=== PATIENT | female | born 1990 | race American Indian/Alaskan Native ===

== ENCOUNTER 2018-07-05 07:32 | Outpatient (CLI) | payer MEDICAID ==
[2018-07-05 08:22] LABS: Bacteria,Urine 1+ /HPF (Negative); Bilirubin,Urine NEG (Negative); Blood,Urine NEG (Negative); Color,Urine Amber (Yellow); Mucus,Urine FEW /HPF; Protein,Urine <15 mg/dL mg/dL (Negative)
[2018-07-05 08:25] LABS: Hematocrit 33.6 % (30.3-42.9); Hemoglobin 10.8 gm/dl (10.1-14.3); Mean Corpuscular HGB Conc 32 % (30-34); Mean Corpuscular Volume 73 fl (79-97); Platelet Count 118 K/mm3 (140-440); Red Blood Count 4.62 M/mm3 (3.65-5.03); Red Cell Distribution Width 17.1 % (13.2-15.2)
[2018-07-05 08:30] LABS: Amphetamine Screen,Urine PRESUMPTIVE NEGATIVE; Benzodiazepines Screen,Urine PRESUMPTIVE NEGATIVE; Cannabinoid Screen,Urine PRESUMPTIVE NEGATIVE; Cocaine Screen,Urine PRESUMPTIVE NEGATIVE; Methadone Screen,Urine PRESUMPTIVE NEGATIVE; Opiate Screen,Urine PRESUMPTIVE NEGATIVE
[2018-07-05 08:50] VITALS: BP 115/61
[2018-07-05] MEDS ORDERED: LACTATED RINGERS 500 ML IV ONE (09:00)
--- NOTE | 2018-07-05 11:19 | Ultrasound Report ---
OB ULTRASOUND History well being. Technique: Transabdominal ultrasound with Doppler interrogation. Gestation: Single Position: Breech Amniotic Fluid: Normal LEBRON = 19.6 cm Placenta: Fundal, anterior Placental Grade: 1 Heart Rate: 133 BPM Cervical length: 6.1 cm (Normal > 3 cm) BPD: 7.7 cm = 31 w 0 d HC: 26.7 cm = 29 w 0 d AC: 24.7 cm = 28 w 6 d FL: 5.6 cm = 29 w 3 d HC/AC Ratio: 1.08 Cephalic Index: 91.8 Estimated Weight: 1359 grams Clinical age = 31 w 0 d EDC: 09/06/18 US Gest. Age = 29 w 4 d EDC: 09/16/18 IMPRESSION: Viable, single intrauterine as described.
== END 2018-07-05 11:10 | disposition home or self-care (01) ==
LOC: TRG 07:32
PROVIDERS: ATTEND Obstetrics & Gynecology
DX: O47.03 False labor before 37 completed weeks of gestation, third trimester (principal); Z3A.31 31 weeks gestation of pregnancy
CPT/HCPCS: 36415; 59025; 76805; 80307; 81001; 85027

== ENCOUNTER 2018-09-02 09:11 | Inpatient (IN) | payer MEDICAID ==
[2018-09-02] MEDS ORDERED: PEPCID IV ONE (09:49)
[2018-09-02] MEDS ORDERED: REGLAN IV ONE (09:49)
[2018-09-02] MEDS ORDERED: BICITRA PO ONE (09:49)
[2018-09-02] MEDS ORDERED: ANCEF/STERILE WATER 2 GM/20 ML 2 GM/20 ML SYRINGE IV NR (10:00)
[2018-09-02] MEDS: LACTATED RINGERS 1,000 ML IV SCH ×2 (10:00→11:32)
[2018-09-02 11:15] LABS: Basophils % (Auto) 0.2 % (0.0-1.8); Eosinophils % (Auto) 0.4 % (0.0-4.3); Hematocrit 34.1 % (30.3-42.9); Hemoglobin 11.2 gm/dl (10.1-14.3); Mean Corpuscular HGB Conc 33 % (30-34); Mean Corpuscular Volume 72 fl (79-97); Monocytes # (Auto) 0.5 K/mm3 (0.0-0.8); Monocytes % (Auto) 5.7 % (0.0-7.3); Platelet Count 112 K/mm3 (140-440); Red Blood Count 4.74 M/mm3 (3.65-5.03); Red Cell Distribution Width 16.7 % (13.2-15.2)
[2018-09-02] MEDS ORDERED: PHENERGAN PO PRN (12:10)
[2018-09-02] MEDS ORDERED: NARCAN 0.4 MG/1 ML IV PRN (12:10)
[2018-09-02] MEDS ORDERED: ZOFRAN IV PRN (12:10)
[2018-09-02] MEDS ORDERED: PHENERGAN PR PRN (12:10)
[2018-09-02] MEDS ORDERED: DILAUDID IV PRN (12:10)
[2018-09-02] MEDS ORDERED: BENADRYL IV PRN (12:10)
--- NOTE | 2018-09-02 12:10 | Anesthesia Consultation ---
Anesthesia Consult and Med Hx Date of service: 09/02/18 - Airway Anesthetic Teeth Evaluation: Good ROM Head & Neck: Adequate Mental/Hyoid Distance: Adequate Mallampati Class: Class III Intubation Access Assessment: Possibly Difficult - Pre-Operative Health Status ASA Pre-Surgery Classification: ASA3 Proposed Anesthetic Plan: Epidural, Spinal - Pulmonary Hx Asthma: No - Cardiovascular System Hx Hypertension: No - Central Nervous System Hx Seizures: No Hx Psychiatric Problems: No - Endocrine Hx Renal Disease: No Hx Hypothyroidism: No Hx Hyperthyroidism: No - Hematic Hx Anemia: No Hx Sickle Cell Disease: No - Other Systems Hx Alcohol Use: No Hx Obesity: Yes (BMI 42.2)
--- NOTE | 2018-09-02 12:10 | Anesthesia Day of Surgery ---
Anesthesia Day of Surgery - Day of Surgery Patient Examined: Yes Patient H&P Reviewed: Yes Patient is NPO: Yes
[2018-09-02] MEDS ORDERED: ANCEF/STERILE WATER 2 GM/20 ML IV ONE (12:58)
[2018-09-02] MEDS ORDERED: SODIUM CHLORIDE FLUSH SYRINGE 10 ML IV NR ×2 (13:00→15:00)
[2018-09-02] MEDS ORDERED: NACL 0.9% IR ONE (13:06)
[2018-09-02] MEDS ORDERED: WATER FOR IRRIG STERILE IR ONE (13:06)
[2018-09-02] MEDS ORDERED: NEO SYNEPHRINE/NS Syringe(OR USE) IV ONE ×2 (13:20)
[2018-09-02] MEDS: PITOCin/NS 20 UNIT/1000ML DRIP 20 UNITS/1,000 ML BAG IV SCH ×2 (13:26→15:25)
--- NOTE | 2018-09-02 14:31 | Operative Report ---
Operative Report Operative Report: Operative Report Operative Report: DATE OF PROCEDURE: 09/02/18 PREOP Diagnosis 1. 39 3/7 weeks gestation 2. Previous section Postop Diagnosis 1. 39 3/7 weeks gestation 2. Previous section 3. UTERINE DEHISCENCE Procedure: Repeat transverse section Findings 1. Viable female infant in the vertex position, weighing 5lb 15oz, 2699g APGARS 8 at 1 min, 9 at 5 min 2. Uterine myometrium adhered directly to fascia. 3. Uterine dehiscence - Uterine serosa - absent 4. Uterine fundal adhered to anterior abdominal wall 5. Lower uterine segment densely adhered to bladder. Surgeon 1. Dottie Martino MD Anesthesia: 1. Epidural I/O: EBL: 1000ml UOP: 150ml, clear urine IVF 1200ml LR Specimens removed: 1. Placenta - to pathology for evaluation Complications: none Disposition: Patient taken to recovery room in stable condition INDICATIONS: The patient is a 27yo at 39 3/7weeks that presented for scheduled repeat section. The patient was consented and the risks including but not limited to bleeding, infections, injury to surrounding organs, potential injury to mother/infant were discussed. All questions were answered and informed consent signed. She was offered and declined a tubal sterilization. PROCEDURE: The patient was taken to the OR in stable condition. Adequate anesthesia was achieved with epidural anesthesia. A sims catheter was placed. She wore SCDs for DVT prophylaxis. And received Ancef for infection prophylaxis. The patient was prepped and draped in the usual fashion and an additional time out was done. A Pfannestiel incision was made over the previous uterine scar. The fascia was incised and the incision extended laterally. At the midline, preperitoneal fat was immediately visible. The right rectus muscle was via a modified Maylard incision to aid in peritoneal visualization. The uterine myometrium was visible and adhered densely to the fascia. It began bleeding upon separation from the fascia and 2-0 Vircryl was used to control bleeding. A transverse inci pankaj was made and careful dissection into the myometrium was undertaken until membranes were noted. The membranes were brought to the hysterotomy and ruptured. The infant was delivered in vertex presentation. She was bulb suctioned and noted to spontaneously cry. The cord was clamped x2, cut and the handed off to awaiting peds staff. Cord blood was collected. The placenta was delivered with minimal membrane adhesions. Attention was then turned to the uterus where the uterine myometrium was reapproximated. The uterine serosa was not visible at the anterior or posterior planes of the hysterotomy. The uterus was repaired with 0-Vicryl in a running, locked stitch and an imbricating layer of the same suture was used. Tisseel Fibrine sealant was placed over the hysterotomy closure aiding in hemostasis. Interceed was placed between the uterine and fascial plane. The fascia was closed with 0 Vicryl. Subcutaneous layer reapproximated with 2-0 Vicryl. Skin closed with 4-0 Vicryl. The patient tolerated the procedure well. All counts were correct x 3. Urine was noted to be clear at close of case. I was present and scrubbed for the entire procedure. The urine was noted to be clear at end of case. The patient was taken to the recovery room in stable condition.
[2018-09-02] MEDS ORDERED: MYLICON PO PRN (14:32)
[2018-09-02] MEDS ORDERED: LANSINOH TP PRN (14:32)
[2018-09-02] MEDS ORDERED: MILK OF MAGNESIA PO PRN (14:32)
[2018-09-02] MEDS ORDERED: TYLENOL PO PRN (14:32)
[2018-09-02] MEDS ORDERED: TUCKS PAD TP PRN (14:32)
--- NOTE | 2018-09-02 14:39 | History and Physical Report ---
History of Present Illness Date of admission: 09/02/18 09:11 Chief complaint: schedule section History of present illness: 27yo at 39 3/7 wks MICHAEL 09/06/2018 presents for scheduled section. She reports good movement, no loss of fluid and no vaginal bleeding. She is a transfer of care at 34 weeks from [place], [place]. She began care their at 10 weeks in January 2018. She transferred care at 28 weeks. Her has been complicated by GBS bacteriauria and HSV2, genital herpes. Past History Past Surgical History: section [employer] History: herpes - Obstetrical History : 3 Number of Living Children: 2 Medications and Allergies Allergies Allergy/AdvReac Type Severity Reaction Status Date / Time azithromycin [From Zithromax] AdvReac Rash Verified 09/02/18 09:47 ciprofloxacin [From Cipro] AdvReac Rash Verified 09/02/18 09:48 peanut AdvReac Rash Verified 09/02/18 09:48 Home Medications Medication Instructions Recorded Confirmed Last Taken Type Acetaminophen [Tylenol] 325 mg PO PRN PRN 07/05/18 07/05/18 1 Day Ago History ~09/01/18 Vit,Calc76/Iron/Folic 1 tab PO DAILY 07/05/18 09/02/18 1 Day Ago History [Pnv 29-1 Tablet] ~09/01/18 Ferrous Sulfate [Feosol 325 MG tab] 325 mg PO BID 30 Days #60 tablet 09/02/18 Unknown Rx Ibuprofen 800 mg PO Q6H PRN 10 Days #30 09/02/18 Unknown Rx tablet MDD 3200mg Valtrex 1,000 mg PO QDAY 09/02/18 09/02/18 1 Day Ago History ~09/01/18 oxyCODONE /ACETAMINOPHEN [Percocet 1 tab PO Q4HR PRN 14 Days #30 tab 09/02/18 Unknown Rx 5/325] Active Meds: Active Medications Acetaminophen (Tylenol) 650 mg PO Q4H PRN PRN Reason: Fever >100.5/ENGEL Diphenhydramine HCl (Benadryl) 12.5 mg IV Q2H PRN PRN Reason: Itching Hydromorphone HCl (Dilaudid) 0.5 mg IV Q4H PRN PRN Reason: breakthrough pain > 7/10 Hydromorphone HCl (Dilaudid) 0.5 mg IV Q5M PRN PRN Reason: Breakthrough Pain Cefazolin Sodium (Ancef/Sterile Water 2 Gm/20 Ml) 2 gm in 20 mls @ 80 mls/hr IV PREOP NR; Protocol Stop: 09/02/18 23:59 Lactated Ringer's (Lactated Ringers) 1,000 mls @ 2,250 mls/hr IV PREOP KATELYN Stop: 09/03/18 10:27 Last Admin: 09/02/18 11:32 Dose: 2,250 mls/hr Documented by: Oxytocin/Sodium Chloride (Pitocin/Ns 20 Unit/1000ml Drip) 20 units in 1,000 mls @ 0 mls/hr IV TITR KATELYN Oxytocin/Sodium Chloride (Pitocin/Ns 20 Unit/1000ml Drip) 20 units in 1,000 mls @ 250 mls/hr IV DIRECT KATELYN Ibuprofen (Motrin) 800 mg PO Q6H PRN PRN Reason: Pain, Mild (1-3) Ketorolac Tromethamine (Toradol) 30 mg IV Q6H PRN PRN Reason: Pain, Moderate (4-6) Stop: 09/07/18 12:10 Magnesium Hydroxide (Milk Of Magnesia) 30 ml PO QHS PRN PRN Reason: Constip Unrelieved By Senna Multi-Ingredient Ointment (Lansinoh) 1 applic TP PRN PRN PRN Reason: dryness/cracking Naloxone HCl (Narcan 0.4 Mg/1 Ml) 0.2 mg IV Q2MIN PRN PRN Reason: Res Rate </= 8 or 02 SAT < 92% Ondansetron HCl (Zofran) 4 mg IV Q8H PRN PRN Reason: Nausea And Vomiting Oxycodone/Acetaminophen (Percocet 5/325) 1 tab PO Q6H PRN PRN Reason: Pain, Moderate (4-6) Promethazine HCl (Phenergan) 25 mg PO Q6H PRN PRN Reason: Nausea And Vomiting Promethazine HCl (Phenergan) 25 mg OK Q6H PRN PRN Reason: Nausea And Vomiting Simethicone (Mylicon) 80 mg PO Q6H PRN PRN Reason: Gas pain Sodium Chloride (Sodium Chloride Flush Syringe 10 Ml) 10 ml IV PRN NR Stop: 09/03/18 12:59 Sodium Chloride (Sodium Chloride Flush Syringe 10 Ml) 10 ml IV PRN NR Witch Fiorella/Glycerin (Tucks Pad) 1 each TP PRN PRN PRN Reason: Hemorrhoids/cleansing/soothing - Vital Signs Vital signs: Vital Signs Temp Resp 98.2 F 18 09/02/18 09:34 09/02/18 09:34 Temp Pulse Resp BP Pulse Ox 98.2 F 90 18 122/71 09/02/18 09:34 09/02/18 11:04 09/02/18 09:34 09/02/18 11:04 - Obstetrical FHR: category 1 Results Result Diagrams: 09/02/18 10:45 Abnormal lab results 09/02/18 Range/Units 10:45 MCV 72 L (79-97) fl MCH 24 L (28-32) pg RDW 16.7 H (13.2-15.2) % Plt Count 112 L (140-440) K/mm3 Seg Neutrophils % 72.7 H (40.0-70.0) % All other labs normal. Assessment and Plan - Patient Problems (1) 39 weeks gestation of Current Visit: Yes Status: Acute Plan to address problem: IVF Routine labs Risks, benefits and alternatives to repeat section discussed and informed consent signed. Ancef 2g IV SALINA Proceed to routine section. (2) Previous section Current Visit: Yes Status: Acute
[2018-09-02] MEDS ORDERED: PITOCin/NS 20 UNIT/1000ML DRIP 20 UNITS/1,000 ML BAG IV SCH (15:00)
[2018-09-02] MEDS: DILAUDID IV PRN ×2 (15:21→15:38)
[2018-09-02] MEDS: TORADOL IV PRN (15:26)
--- NOTE | 2018-09-02 15:40 | Post Anesthesia Evaluation ---
- Post Anesthesia Evaluation Patient Participated: Yes Airway Patent: Yes Stable Respiratory Function: Yes Nausea/Vomiting: No Temp > 96.8F: Yes Pain Manageable: Yes Adequeate Hydration: Yes Anesthesia Complications: No Block Receding Appropriately: Yes Patient on Ventilator: No
[2018-09-02] MEDS ORDERED: D5LR 1,000 ML IV SCH (22:00)
[2018-09-03] MEDS: TORADOL IV PRN (01:56)
[2018-09-03 04:05] LABS: Hematocrit 27.5 % (30.3-42.9); Hemoglobin 8.9 gm/dl (10.1-14.3)
--- NOTE | 2018-09-03 12:08 | Progress Note ---
Assessment and Plan A: POD#1 s/p Repeat c/s Asymptomatic Anemia Pain well controlled VSS P: Routine PP/PO orders Encouraged ambulation in room Abdominal binder FeS04 325mg PO BID Anticipate discharge home in 24-48 hrs Subjective - Subjective Date of service: 09/03/18 Principal diagnosis: POD#1 s/p Repeat c/s Interval history: See H&P Patient reports: appetite normal, voiding normally, pain well controlled, ambulating normally : doing well, bottle feeding Objective - Vital Signs Latest vital signs: Vital Signs Temp Pulse Resp BP Pulse Ox 09/03/18 04:10 98.2 F 97 H 20 124/62 100 09/03/18 02:26 16 09/03/18 01:56 20 09/03/18 00:00 98.7 F 76 20 118/67 99 09/02/18 16:20 98.4 F 80 19 118/59 98 09/02/18 15:39 78 16 139/76 98 09/02/18 15:24 72 15 130/76 99 09/02/18 15:09 74 14 116/72 100 09/02/18 15:04 62 15 122/59 100 09/02/18 14:59 67 15 121/66 98 09/02/18 14:54 77 16 117/57 99 09/02/18 14:49 75 15 125/63 98 09/02/18 14:44 77 16 118/64 99 09/02/18 14:39 98.5 F 77 15 128/85 97 Intake and Output 09/02/18 09/03/18 09/03/18 23:59 07:59 15:59 Intake Total 240 240 Output Total 100 200 Balance 140 40 Intake: Oral 240 240 Output: Urine 100 200 Indwelling Catheter 100 200 Other: Total, Intake Amount 240 240 Total, Output Amount 100 200 # Voids Indwelling Catheter 1 - Exam Breasts: Present: normal Cardiovascular: Present: Regular rate, Normal S1, Normal S2, No murmurs Lungs: Present: Clear to auscultation, Normal air movement Abdomen: Present: normal appearance, soft, tenderness (as expected Post-op), normal bowel sounds. Absent: distention Vulva: both: normal Uterus: Present: firm, fundal height at umbilicus Extremities: Present: normal Deep Tendon Reflex Grade: Normal +2 Incision: Present: normal, dry, intact, dressed (Pressure dresssing CDI) - Labs Labs: Abnormal lab results 09/03/18 Range/Units 02:27 Hgb 8.9 L (10.1-14.3) gm/dl Hct 27.5 L D (30.3-42.9) %
[2018-09-03] MEDS: PERCOCET 5/325 PO PRN (15:59)
[2018-09-03] MEDS: IBUPROFEN PO PRN (15:59)
[2018-09-03] MEDS: FEOSOL PO SCH (16:01)
[2018-09-04] MEDS: FEOSOL PO SCH ×3 (01:53→22:18)
[2018-09-04] MEDS: IBUPROFEN PO PRN ×3 (01:53→22:17)
--- NOTE | 2018-09-04 10:42 | Progress Note ---
Assessment and Plan A: /postop day 2 S/P repeat transverse section. Anemia secondary to and blood loss. P: Continue iron supplementation. Continue ambulation. Anticipate discharge tomorrow. Subjective - Subjective Date of service: 09/04/18 Principal diagnosis: POD#2 s/p Repeat c/s Interval history: /postop day 2 S/P repeat transverse section. Patient is doing well. She reports a small amount of lochia. She is voiding without difficulty and passing gas and tolerating a regular diet. She is ambulating well. Patient denies cough, chest pain, shortness of breath, dizziness, leg pain, abdominal pain, heavy vaginal bleeding, or nausea/vomiting. Patient reports: appetite normal, voiding normally, pain well controlled, flatus, ambulating normally, no dizzy ambulation, no nauseated : doing well Objective - Vital Signs Latest vital signs: Vital Signs Temp Pulse Resp BP BP Pulse Ox 09/04/18 04:00 98.4 F 80 18 119/81 09/04/18 02:53 18 09/04/18 01:53 18 09/04/18 00:00 98.6 F 16 L 18 121/74 09/03/18 17:41 99.0 F 100 H 20 111/62 99 09/03/18 12:41 98.2 F 90 20 123/52 99 Intake and Output 09/03/18 09/04/18 09/04/18 23:59 07:59 15:59 Intake Total 660 Output Total 350 Balance -350 660 Intake: Intake, Free Water 660 Output: Urine 350 Void 350 Other: Total, Output Amount 350 # Voids Void 1 1 - Exam Cardiovascular: Present: Regular rate, Normal S1, Normal S2 Lungs: Present: Clear to auscultation Abdomen: Present: normal appearance, soft, normal bowel sounds. Absent: distention, tenderness, guarding, rigidity Uterus: Present: normal, firm, fundal height below umbilicus. Absent: bogginess, tenderness Extremities: Present: normal, edema (mild pedal edema bilaterally). Absent: tenderness Incision: Present: normal, dry, intact
[2018-09-04] MEDS: PERCOCET 5/325 PO PRN ×2 (12:39→22:17)
[2018-09-05] MEDS: PERCOCET 5/325 PO PRN (07:26)
[2018-09-05] MEDS: IBUPROFEN PO PRN ×2 (07:27→18:53)
--- NOTE | 2018-09-05 17:35 | Progress Note ---
Assessment and Plan A: /postop day 3 S/P repeat low transverse section. Anemia secondary to and blood loss. P: Discharge patient home today. discharge instructions and warning signs discussed with patient in detail. Advised patient to avoid intercourse, lifting, heavy housework, and driving as well as stair climbing. Advised patient to continue taking her vitamins and iron supplements at home. Advised patient to call [facility] office tomorrow AM and schedule an appointment for incision check in 1 week. Patient voiced understanding of all instructions. Subjective - Subjective Date of service: 09/05/18 Principal diagnosis: POD#3 s/p Repeat c/s Interval history: /postop day 3 S/P repeat transverse section. Patient is doing well. She reports a small amount of lochia. She is voiding without difficulty and passing gas and tolerating a regular diet. She is ambulating well. Patient denies cough, chest pain, shortness of breath, dizziness, leg pain, abdominal pain, heavy vaginal bleeding, or nausea/vomiting. Patient reports: appetite normal, voiding normally, flatus, ambulating normally, no dizzy ambulation, no pain well controlled, no nauseated : doing well Objective - Vital Signs Latest vital signs: Vital Signs Temp Pulse Resp BP 09/05/18 07:42 98.4 F 75 18 113/63 09/05/18 00:00 98.0 F 85 18 120/71 Intake and Output 09/05/18 09/05/18 09/05/18 07:59 15:59 23:59 Intake Total 720 Balance 720 Intake: Oral 720 Other: Total, Intake Amount 480 # Voids Void 1 - Exam Cardiovascular: Present: Regular rate, Normal S1, Normal S2 Lungs: Present: Clear to auscultation Abdomen: Present: normal appearance, soft, normal bowel sounds. Absent: distention, tenderness, guarding, rigidity Uterus: Present: normal, firm, fundal height below umbilicus. Absent: bogginess, tenderness Extremities: Present: normal. Absent: tenderness, edema Incision: Present: normal, dry, intact
--- NOTE | 2018-09-05 17:37 | Discharge Summary ---
<ZAHIRA SNYDER - Last Filed: 09/05/18 17:38> Providers - Providers Date of Admission: 09/02/18 09:11 Date of discharge: 09/05/18 Attending physician: MARISSA GRIFFITHS None Primary care physician: MARISSA GRIFFITHS Hospitalization Reason for admission: section Delivery: Procedure: repeat low transverse Incision: normal, dry, intact complications: none Discharge diagnosis: IUP at term delivered baby: female Pertinent studies: Labs Hospital course: Normal hospital course. Condition at discharge: Good Disposition: DC-01 TO HOME OR SELFCARE - Discharge Diagnoses (1) Term delivered Status: Acute (2) Anemia due to blood loss Status: Acute Plan - Discharge Medications Prescriptions: Ferrous Sulfate [Feosol 325 MG tab] 325 mg PO BID 30 Days #60 tablet Ibuprofen 800 mg PO Q6H PRN 10 Days #30 tablet MDD 3200mg PRN Reason: Pain, Moderate (4-6) oxyCODONE /ACETAMINOPHEN [Percocet 5/325] 1 tab PO Q4HR PRN 14 Days #30 tab PRN Reason: Pain , Severe (7-10) - Provider Discharge Summary Activity: routine, no sex for 6 weeks, no heavy lifting 4 weeks, no strenuous e xercise Diet: routine Instructions: routine Additional instructions: Take your vitamins and iron supplements at home. Call your doctor immediately for: * Fever > 100.5 * Heavy vaginal bleeding ( >1 pad per hour) * Severe persistent headache * Shortness of breath * Reddened, hot, painful area to leg or breast * Drainage or odor from incision. * Keep incision clean and dry at all times and follow doctor's instructions regarding bathing/showering - Follow up plan Follow up: MARISSA GRIFFITHS MD [Primary Care Provider] - 7 Days Forms: [facility] Discharge Summary, Discharge Signature Page <MARISSA GRIFFITHS - Last Filed: 09/06/18 01:25> Providers - Providers Date of Admission: 09/02/18 09:11 Attending physician: MARISSA GRIFFITHS Primary care physician: MARISSA GRIFFITHS Hospitalization Pertinent studies: Laboratory Tests 09/02/18 09/02/18 09/03/18 10:45 10:45 02:27 WBC 9.5 RBC 4.74 Hgb 11.2 8.9 L Hct 34.1 27.5 L D MCV 72 L MCH 24 L MCHC 33 RDW 16.7 H Plt Count 112 L Lymph % (Auto) 21.0 Colbert % (Auto) 5.7 Eos % (Auto) 0.4 Baso % (Auto) 0.2 Lymph # 2.0 Colbert # 0.5 Eos # 0.0 Baso # 0.0 Seg Neutrophils % 72.7 H Seg Neutrophils # 6.9 Blood Type O POSITIVE Antibody Screen Negative - Discharge Diagnoses (1) 39 weeks gestation of Status: Acute (2) Previous section Status: Acute (3) Anemia due to blood loss Status: Acute Comment: Asymptomatic. Plan discharge home with supplemental iron. Plan - Provider Discharge Summary Additional instructions: [] Smoking cessation referral if applicable(refer to patient education folder for contact #) [] Refer to [facility] Booklet Call your doctor immediately for: * Fever > 100.5 * Heavy vaginal bleeding ( >1 pad per hour) * Severe persistent headache * Shortness of breath * Reddened, hot, painful area to leg or breast * Drainage or odor from incision. * Keep incision clean and dry at all times and follow doctor's instructions regarding bathing/showering
[2018-09-05 18:04] VITALS: BP 118/58
== END 2018-09-05 20:18 | disposition home or self-care (01) | DRG 765 ==
LOC: APU 09:11 → OB 16:45
PROVIDERS: ADMIT Obstetrics & Gynecology; ATTEND Obstetrics & Gynecology
PROC: 10D00Z1 Extraction of Products of Conception, Low, Open Approach (ICD-10-PCS; principal; 2018-09-02)
PROC: 0UQ90ZZ Repair Uterus, Open Approach (ICD-10-PCS; 2018-09-02)
DX: O34.211 Maternal care for low transverse scar from previous cesarean delivery (principal); O71.1 Rupture of uterus during labor; O99.214 Obesity complicating childbirth; E66.9 Obesity, unspecified; O99.02 Anemia complicating childbirth; O98.52 Other viral diseases complicating childbirth; B00.9 Herpesviral infection, unspecified; O99.824 Streptococcus B carrier state complicating childbirth; O98.32 Other infections with a predominantly sexual mode of transmission complicating childbirth; Z3A.39 39 weeks gestation of pregnancy; Z37.0 Single live birth; Z88.1 Allergy status to other antibiotic agents; Z91.010 Allergy to peanuts; Z79.899 Other long term (current) drug therapy
CPT/HCPCS: 36415; 85014; 85018; 85025; 86850; 86900; 86901; 88307; G0378; A6250; C9250; J0690; J1170; J1885; J2370; J2590; J2765; J7120; J7121

== ENCOUNTER 2019-02-10 03:09 | Emergency (ER) | payer MEDICAID ==
[2019-02-10 03:22] VITALS: BP 131/79
--- NOTE | 2019-02-10 03:58 | XRay Report ---
CHEST 1 VIEW 3:32 AM INDICATION / CLINICAL INFORMATION: Chest Pain. COMPARISON: None available. FINDINGS: SUPPORT DEVICES: None. HEART / MEDIASTINUM: The heart size and pulmonary vasculature are normal. The aorta is normal in wanda liz. LUNGS / PLEURA: No significant pulmonary or pleural abnormality. No pneumothorax. ADDITIONAL FINDINGS: No significant additional findings. IMPRESSION: No acute findings. Signer Name: Dennis Maxwell MD Signed: 02/10/2019 3:53 AM Workstation Name: [id number]
[2019-02-10] MEDS ORDERED: IBUPROFEN PO ONE (04:28)
--- NOTE | 2019-02-10 04:31 | Emergency Department Report ---
ED General Adult HPI - General Chief complaint: Chest Pain Stated complaint: CHEST PAIN AND HEADACHES Time Seen by Provider: 02/10/19 04:26 Source: patient Mode of arrival: Ambulatory Limitations: No Limitations - History of Present Illness Initial comments: 28-year-old female presents to the emergency room for chest pain that aches headache for 3 days. Patient reports she typically Potter 2 days ago. She reports she has had a headache that is throbbing. Last menstrual period was 12/29/2018. Patient admits to a cough denies any runny nose or nasal congestion or shortness of breath. Patient reports her headache as a 4 out of 10 and chest pain as a 7 out of 10. She reports past medical history of asthma. Onset/Timin -: days(s) Location: head, chest Radiation: non-radiation Quality: aching Consistency: intermittent Improves with: none Worsens with: none Associated Symptoms: chest pain, cough, headaches. denies: diaphoresis, fever/chills Treatments Prior to Arrival: none - Related Data Home Medications Medication Instructions Recorded Confirmed Last Taken Acetaminophen [Tylenol] 325 mg PO PRN PRN 07/05/18 09/03/18 1 Day Ago ~07/04/18 Vit,Calc76/Iron/Folic 1 tab PO DAILY 07/05/18 09/02/18 1 Day Ago [Pnv 29-1 Tablet] ~09/01/18 Valtrex 1,000 mg PO QDAY 09/02/18 09/02/18 1 Day Ago ~09/01/18 Previous Rx's Medication Instructions Recorded Last Taken Type Ferrous Sulfate [Feosol 325 MG tab] 325 mg PO BID 30 Days #60 tablet 09/02/18 Unknown Rx Ibuprofen [Ibuprofen 800] 800 mg PO Q6H PRN 10 Days #30 09/02/18 Unknown Rx tablet MDD 3200mg oxyCODONE /ACETAMINOPHEN [Percocet 1 tab PO Q4HR PRN 14 Days #30 tab 09/02/18 Unknown Rx 5/325] Naproxen [Naprosyn] 500 mg PO BID PRN #20 tablet 02/10/19 Unknown Rx Allergies Allergy/AdvReac Type Severity Reaction Status Date / Time azithromycin [From Zithromax] AdvReac Rash Verified 09/02/18 09:47 ciprofloxacin [From Cipro] AdvReac Rash Verified 09/02/18 09:48 peanut AdvReac Rash Verified 09/02/18 09:48 ED Review of Systems ROS: Stated complaint: CHEST PAIN AND HEADACHES Other details as noted in HPI Comment: All other systems reviewed and negative ED Past Medical Hx - Past Medical History Previous Medical History?: Yes Hx Hypertension: No Hx Diabetes: No Hx Deep Vein Thrombosis: No Hx Renal Disease: No Hx Sickle Cell Disease: No Hx Seizures: No Hx Asthma: Yes Hx HIV: No - Surgical History Past Surgical History?: Yes Additional Surgical History: x3 - Social History Smoking Status: Never Smoker Substance Use Type: None - Medications Home Medications: Home Medications Medication Instructions Recorded Confirmed Last Taken Type Acetaminophen [Tylenol] 325 mg PO PRN PRN 07/05/18 09/03/18 1 Day Ago History ~07/04/18 Vit,Calc76/Iron/Folic 1 tab PO DAILY 07/05/18 09/02/18 1 Day Ago History [Pnv 29-1 Tablet] ~09/01/18 Ferrous Sulfate [Feosol 325 MG tab] 325 mg PO BID 30 Days #60 tablet 09/02/18 Unknown Rx Ibuprofen [Ibuprofen 800] 800 mg PO Q6H PRN 10 Days #30 09/02/18 Unknown Rx tablet MDD 3200mg Valtrex 1,000 mg PO QDAY 09/02/18 09/02/18 1 Day Ago History ~09/01/18 oxyCODONE /ACETAMINOPHEN [Percocet 1 tab PO Q4HR PRN 14 Days #30 tab 09/02/18 Unknown Rx 5/325] Naproxen [Naprosyn] 500 mg PO BID PRN #20 tablet 02/10/19 Unknown Rx ED Physical Exam - General Limitations: No Limitations General appearance: alert, in no apparent distress - Head Head exam: Present: atraumatic, normocephalic - Eye Eye exam: Present: normal appearance - ENT ENT exam: Present: mucous membranes moist - Neck Neck exam: Present: normal inspection - Respiratory Respiratory exam: Present: normal lung sounds bilaterally. Absent: respiratory distress - Cardiovascular Cardiovascular Exam: Present: regular rate, normal rhythm. Absent: systolic murmur, diastolic murmur, rubs, gallop - GI/Abdominal GI/Abdominal exam: Present: soft, normal bowel sounds - Extremities Exam Extremities exam: Present: normal inspection - Back Exam Back exam: Present: normal inspection - Neurological Exam Neurological exam: Present: alert, oriented X3 - Psychiatric Psychiatric exam: Present: normal affect, normal mood - Skin Skin exam: Present: warm, dry, intact, normal color. Absent: rash ED Course Vital Signs 02/10/19 03:19 Temperature 98.6 F Pulse Rate 78 Respiratory 14 Rate Blood Pressure 131/79 O2 Sat by Pulse 100 Oximetry ED Medical Decision Making - EKG Data EKG shows normal: sinus rhythm Rate: normal - Radiology Data Radiology results: report reviewed Patient: NOAH NAIDU MR#: [id number] : 1990 Acct:[id number] Age/Sex: 28 / F ADM Date: 02/10/19 Loc: ED Attending Dr: Ordering Physician: DANG CHAVARRIA MD Date of Service: 02/10/19 Procedure(s): XR chest 1V ap Accession Number(s): [id number] cc: ED MD DEON Fluoro Time In Minutes: CHEST 1 VIEW 3:32 AM INDICATION / CLINICAL INFORMATION: Chest Pain. COMPARISON: None available. FINDINGS: SUPPORT DEVICES: None. HEART / MEDIASTINUM: The heart size and pulmonary vasculature are normal. The aorta is normal in caliber. LUNGS / PLEURA: No significant pulmonary or pleural abnormality. No pneumothorax. ADDITIONAL FINDINGS: No significant additional findings. IMPRESSION: No acute findings. Signer Name: Dennis Maxwell MD Signed: 02/10/2019 3:53 AM Workstation Name: [id number] Transcribed By: RT Dictated By: Dennis Maxwell MD Electronically Authenticated By: Dennis Maxwell MD Signed Date/Time: 02/10/19352 DD/ 2 TD/TT: - Medical Decision Making 28-year-old female presents to the emergency room for chest pain that aches headache for 3 days. Patient reports she typically Potter 2 days ago. She reports she has had a headache that is throbbing. Last menstrual period was 12/29/2018. Patient admits to a cough denies any runny nose or nasal congestion or shortness of breath. Patient reports her headache as a 4 out of 10 and chest pain as a 7 out of 10. She reports past medical history of asthma. Chest x-ray shows no acute abnormalities. Patient be given ibuprofen 600 mg. EKG is within normal limits. Patient reports that pain medication as improved her headache and chest pain. I discussed the patient she could be having chest discomfort from lifting up her 3 kids. Patient verbalized understanding. Also discussed the patient she should follow up with her primary care provider presents persist or gets worse. Critical care attestation.: If time is entered above; I have spent that time in minutes in the direct care of this critically ill patient, excluding procedure time. ED Disposition Clinical Impression: Chest wall muscle strain Qualifiers: Encounter type: initial encounter Qualified Code(s): S29.011A - Strain of muscle and tendon of front wall of thorax, initial encounter Headache Qualifiers: Headache type: unspecified Headache chronicity pattern: acute headache Intractability: not intractable Qualified Code(s): R51 - Headache Disposition: TO HOME OR SELFCARE Is pt being admited?: No Does the pt Need Aspirin: No Condition: Stable Instructions: Acute Headache (ED), Costochondritis (ED) Additional Instructions: Take pain medication as needed. Increase her fluid intake advance your diet advanced tolerated. Follow up with her primary care provider if his symptoms persist or gets worse. Prescriptions: Naproxen [Naprosyn] 500 mg PO BID PRN #20 tablet PRN Reason: Pain , Severe (7-10) Referrals: JOEL GONZALEZ MD [Primary Care Provider] - 3-5 Days
== END 2019-02-10 06:51 | disposition home or self-care (01) ==
LOC: ED 03:09
DX: S29.011A Strain of muscle and tendon of front wall of thorax, initial encounter (principal); R51 Headache; R05 Cough; J45.909 Unspecified asthma, uncomplicated; Z88.1 Allergy status to other antibiotic agents; Z79.899 Other long term (current) drug therapy; Z91.010 Allergy to peanuts
CPT/HCPCS: 71045; 93005; 93010